=== PATIENT | female | born 1950 | race Caucasian/White ===

== ENCOUNTER 2024-03-28 07:58 | Day surgery (SDC) | payer MEDICARE ==
[2024-03-28] MEDS: IV FLUID CONTINUATION 1,000 ML IV ONE (08:11)
[2024-03-28 08:19] VITALS: TEMP 97.6
[2024-03-28] MEDS: LACTATED RINGERS 1,000 ML IV SCH (08:49)
[2024-03-28] MEDS ORDERED: PROPOFOL 10 MG/ML 20 ML VIAL IV ONE (09:40)
[2024-03-28] MEDS ORDERED: LIDOCAINE 1% INJ 10MG/ML (20 ML MDV) ONE (09:40)
--- NOTE | 2024-03-28 10:05 | P.PCN ---
Date of Procedure: 03/28/24 Procedure(s) Performed: Brief history: Patient is a pleasant 73-year-old white female scheduled for an elective upper endoscopy as well as colonoscopy as a part of evaluation of longstanding history of GERD and screening for colon cancer. Procedure performed: Esophagogastroduodenoscopy with biopsy Colonoscopy Preoperative diagnosis: Longstanding history of GERD Screening for colon cancer Anesthesia: MAC Procedure: After informed consent was obtained from the patient was brought into the endoscopy unit and IV sedation was administered by anesthesia under continuous monitoring. Initially upper endoscopy was done. The Olympus GF 160 video endoscope was inserted inserted into the mouth and esophagus intubated without any difficulty and was gradually advanced into the stomach and duodenum and carefully examined. The bulb and second part of the duodenum appeared normal. The scope was then withdrawn into the stomach adequately insufflated with air and upon careful examination the antrum scattered erosions and patchy areas of erythema consistent with gastritis and biopsies were done from this area. Mucosa of the body, cardia and fundus appeared normal. The scope was then withdrawn into the esophagus. Moderate size hiatal hernia noted. The GE junction was located at 32 cm to the incisors. It appeared regular with no erythema erosions or ulcerations. Rest of the esophagus appeared normal. Patient tolerated the procedure well. At this time the patient continued to remain sedation. Initial digital rectal examination was normal. Olympus CF 160 video colonoscope was then inserted into the rectum and gradually advanced to the cecum without any difficulty. Careful examination was performed as the scope was gradually being withdrawn. The prep was fair. Irrigation was performed.. The cecum, ascending colon, transverse colon, descending colon, sigmoid colon and rectum appeared normal. Retroflexion was performed in the rectum and no lesions were noted. Scattered sigmoid diverticulosis. Patient tolerated the procedure well. Impression: 1. Upper endoscopy revealed mild antral gastritis and moderate-sized hiatal hernia with no evidence of esophagitis or Olvera's esophagus 2. Colonoscopy revealed scattered sigmoid diverticulosis but no evidence of colorectal neoplasia Recommendations: Findings of this examination were discussed with the patient as well as her family. She was advised to follow-up with the biopsy results. Continue with Pepcid and Carafate daily. Follow antireflux measures. Recommended repeat screening colonoscopy in 10 years.
[2024-03-28 10:32] VITALS: BP 148/70; PULSE 57; RESP 18
== END 2024-03-28 11:01 | disposition home or self-care (01) ==
LOC: ORWHC2ENDO 07:58
PROVIDERS: ATTEND Internal Medicine Gastroenterology
DX: Z12.11 Encounter for screening for malignant neoplasm of colon (principal); K57.30 Diverticulosis of large intestine without perforation or abscess without bleeding; K44.9 Diaphragmatic hernia without obstruction or gangrene; K29.50 Unspecified chronic gastritis without bleeding; K21.9 Gastro-esophageal reflux disease without esophagitis; I10 Essential (primary) hypertension; E78.5 Hyperlipidemia, unspecified; L98.499 Non-pressure chronic ulcer of skin of other sites with unspecified severity; Z79.899 Other long term (current) drug therapy; Z90.49 Acquired absence of other specified parts of digestive tract; Z90.710 Acquired absence of both cervix and uterus
CPT/HCPCS: 88305; 43239; J2001; J2704; G0121

== ENCOUNTER → 2024-06-30 | Outpatient (CLI) | payer MEDICARE ==
[2024-06-30 09:58] VITALS: BP 154/81; PULSE 61; RESP 16
--- NOTE | 2024-06-30 14:49 | P.PAINPG ---
PQRS Measure Charge Sheet Comment: HISTORY OF PRESENT ILLNESS: A 74 yr old female as a referral from Dr Styles presents today w severe and chronic LBP > 1 yr secondary to BL Sacroiliitis, BL Hip Bursitis, radiculopathy, spondylosis and facet arthropathy without myelopathy for evaluation. Pt states pain level is provoked at 8 /10 in intensity, constant, localized in the BL hips, sore in character without shooting pain . Pain is provoked by bending, lifting. Pain is alleviated by physician guided home exercises 4 times weekly since Feb 2024, heat, medications (Tyl #4), topical Voltaren, repositioning and rest . PMH: OA, HTN, Hyperlipidemia, GERD, HH PSH: EGD/ Colonoscopy (2023), LESIs, BL SI (Apr 2024), BL Hip Bursa (Feb 2024) SH: Negative x3 FH: Non contributory All: See list Meds: See list REVIEW OF ORGAN SYSTEMS: CONSTITUTIONAL: No fevers or chills. No recent weight loss. NEUROLOGICAL: + numbness and tingling along the distal extremities. No seizure disorders or headaches. MUSCULOSKELETAL: + pain PSYCHIATRIC: Denies current depression or suicidal thoughts. Physical Examinations : Constitutional : Cooperative , not in acute distress . Neurologic : Cranial nerve II to XII intact. No focal neurological deficits. Psychiatric : alert & oriented x 3. Matching mood & appropriate affect. Judgment & insight intact. Musculoskeletal : Cervical Spine Motor strength in the deltoid and biceps: Normal right side. Normal Left side Motor strength biceps and the wrist extensors: Normal right side . Normal left side Motor strength in the triceps muscle: Normal right side. Normal left side Deep tendon reflexes: Normal at the biceps. Normal at Brachioradialis. Normal at triceps Vertebral body tenderness to deep palpation over Cervical facet loading test: positive bilaterally Spurling test: positive bilaterally Neck distraction test: positive bi laterally Ce sign: positive bilaterally Lumbar spine +Trendelenburg BL Motor strength lower extremities ,thigh and legs 5/5 Right side , 5/5 Left side Deep tendon reflexes : Normal Knee Jerk. Normal Ankle Jerk Vertebral body tenderness over Dang Test positive Lumbar facet Loading Test: positive Right / positive Left Range of motion of the lumbar spine Flexion 30 degrees, extension 10 degrees Straight Leg Raise test: Left/ Right positive at degrees Taniya test: positive right / positive left. Severe tenderness over the Sacroiliac joint on the Right / Left sides Gaenslen test: positive bilaterally Seated flexion test: positive bilaterally. Sacral spine : Severe tenderness over the Sacroiliac joint: right side / left side Range of motion: Flexion of the lumbar spine <60 degrees Range of motion: Extension of the lumbar spine <20 degrees Gaenslen's Test positive Taniya test: positive right side / left side Thigh Thrust Test Sacral Thrust Test Imaging: MRI non contrast lumbar spine from 11/30/23 reviewed Assessment/ Plan : BL Sacroiliitis, L1-S1 disc bulges w mild spinal stenosis, Lumbar Radiculopathy, BL Hip Bursitis Pt unsure if she would like BL hip imaging for BL hip trochanteric injections at this time. NATACHA faxed. All questions answered. I have spent greater than 30 minutes on patient care today. Dr Lazaro was available by phone for the evaluation of this patient. The time was used to review the medical records including relevant urine studies and Prescription history (MAPs), review of the available imaging, evaluation and examination of the patient, coordination of care with the medical staff and if applicable referring physicians, as well as creation of the medical record - Pain Location Bilateral Hip Non-Pharmacological Interventions: Heat Pharmacological Interventions: PRN Medication, Scheduled Medication, Topical Medication Home Medications: Ambulatory Orders Airborne (Unk) 1 dose PO DAILY 03/25/24 Amitriptyline HCl 10 mg PO HS 03/25/24 B12 (Unk) 1 tab PO DAILY 03/25/24 Bisoprolol Fumarate 2.5 mg PO HS 03/25/24 Calcium D3(Unk) 600 mg PO DAILY 03/25/24 Chlorthalidone 25 mg PO DAILY 03/25/24 D3 (Unk) 1 tab PO DAILY 03/25/24 Famotidine 40 mg PO HS 03/25/24 Focus Select 1 tab PO BID 03/25/24 Losartan Potassium 100 mg PO HS 03/25/24 Magnesium Oxide [Magnesium] 500 mg PO HS 03/25/24 Multivitamins, Thera [Multivitamin (formulary)] 1 tab PO DAILY 03/25/24 Rosuvastatin Calcium 10 mg PO DAILY 03/25/24 Sucralfate [Carafate] 1 gm PO BID 03/25/24 Tylenol #3 1 tab PO BID 03/25/24 Controlled Substance Measures - Controlled Substance Measures Is patient prescribed a controlled substance at discharge?: No
== END ==
LOC: PNWHC3 08:01
PROVIDERS: ATTEND Specialist
DX: M53.3 Sacrococcygeal disorders, not elsewhere classified
CPT/HCPCS: 99211